=== PATIENT | female | born 1970 | race Caucasian/White ===

== ENCOUNTER 2021-01-07 22:41 | Emergency (ER) | payer OTHER ==
[~2021-01-07] VITALS: Ht 152.4 cm; Wt 55.9 kg
[~2021-01-07 22:41] MED LIST: ACET-1600 PO; AMPH20TA2; CHOL200052 PO; CYAN1TAB29 PO; ENZY1CAP PO; HYDR-757 PO; HYDR1TAB13 PO; IBUP200T49 PO; KRIL500C PO; TRAZ-175 PO
[2021-01-08] LABS: BASOPHILS % (AUTO) 1 % (0-1); EOSINOPHILS % (AUTO) 2 % (1-7); LYMPHOCYTES % (AUTO) 38 % (22-44); MEAN CORPUSCULAR HEMOGLOBIN 32.7 pg (27.0-34.8); MEAN CORPUSCULAR HGB CONC 34.5 g/dL (32.4-35.8); MONOCYTES % (AUTO) 8 % (2-9); NEUTROPHILS % (AUTO) 53 % (42-75); PLATELET COUNT 377 x10^3/uL (130-400); RED BLOOD COUNT 4.41 x10^6/uL (3.82-5.3); RED CELL DISTRIBUTION WIDTH 13.9 % (9.6-15.2)
[2021-01-08 00:14] LABS: ALANINE AMINOTRANSFERASE 29 U/L (12-78); ALBUMIN 3.6 g/dL (3.4-5.0); ANION GAP 4 mmol/L (5-15); CALCIUM 9.1 mg/dL (8.5-10.1); CHLORIDE 105 mmol/L (98-107); CREATININE 0.79 mg/dL (0.55-1.02)
[2021-01-08 00:18] LABS: ALKALINE PHOSPHATASE 68 U/L (45-117); BILIRUBIN,TOTAL 0.3 mg/dL (0.2-1.0); TOTAL PROTEIN 7.5 g/dL (6.4-8.2); TROPONIN I < 0.015 ng/mL (0.000-0.045)
--- NOTE | 2021-01-08 00:27 | NUR ---
PT CONNECTED TO ALL MONITORING VSS NADN
--- NOTE | 2021-01-08 00:55 | NUR ---
REPORT TO MONY MUNOZCAN STRIPER OF CARE AT THIS TIME
--- NOTE | 2021-01-08 00:56 | NUR ---
REPORT RECEIVED FROM PEWEEE MUNOZ
[2021-01-08 01:02] VITALS: BP 101/75
--- NOTE | 2021-01-08 01:41 | NUR ---
Patient given discharge instructions and they have confirmed that they understand the instructions. Patient ambulatory with steady gait. NAD, all questions answered appropriately, denies additional needs at this time. No personal belongings left in room after discharge.
== END 2021-01-08 01:42 | disposition home or self-care (01) ==
LOC: ED 23:30
DX: M25.551 Pain in right hip (principal); M79.651 Pain in right thigh; R07.2 Precordial pain; R94.31 Abnormal electrocardiogram [ECG] [EKG]; Z90.89 Acquired absence of other organs; Z90.49 Acquired absence of other specified parts of digestive tract; Z90.710 Acquired absence of both cervix and uterus; Z90.721 Acquired absence of ovaries, unilateral; Z87.891 Personal history of nicotine dependence
CPT/HCPCS: 36415; 71045; 80053; 84484; 85025; 93005; 99285